=== PATIENT | male | born 1975 | race Caucasian/White ===

== ENCOUNTER 2023-10-25 13:39 | Emergency (ER) | payer SELFPAY ==
[2023-10-25 13:43] VITALS: BP 135/89
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
[2023-10-25] MEDS: MOTRIN 600 MG PO (16:47)
== END 2023-10-25 17:57 | disposition home or self-care (01) ==
LOC: EMR 13:39
PROVIDERS: EMERGENCY PHYSICIAN Emergency Medicine
DX: R51.9 Headache, unspecified (principal); R22.0 Localized swelling, mass and lump, head; V89.2XXA Person injured in unspecified motor-vehicle accident, traffic, initial encounter; M54.50 Low back pain, unspecified
CPT/HCPCS: 99283